=== PATIENT | male | born 1975 | race African-American/Black ===

== ENCOUNTER 2020-10-02 12:47 | Emergency (ER) | payer SELFPAY ==
[~2020-10-02] VITALS: Ht 180.3 cm; Wt 77.1 kg
[2020-10-02 12:52] VITALS: BP 151/106; Ht 180.3 cm; Wt 77.1 kg
== END 2020-10-02 13:10 | disposition left against medical advice (07) ==
LOC: ED 12:47
DX: R10.816 Epigastric abdominal tenderness (principal); R11.2 Nausea with vomiting, unspecified; F10.10 Alcohol abuse, uncomplicated; F17.210 Nicotine dependence, cigarettes, uncomplicated
CPT/HCPCS: 99406